=== PATIENT | male | born 1955 | race Caucasian/White ===

== ENCOUNTER 2021-02-18 15:10 | Inpatient (IN) | payer OTHER, SELFPAY ==
[~2021-02-18] VITALS: Ht 180.3 cm; Wt 61.2 kg
[2021-02-18 15:45] VITALS: BP_SYST 150
--- NOTE | 2021-02-18 15:45 | NUR ---
triage assessment done in ambulance, pt. AAOX4, states was mowing yard today felt light headed went to shower and next thing he remembers was EMS present, granddaughter heard a loud sound found pt. on floor in what appeared to be having seizure like activity X 1 minute, EMS reported pt. was postictal X 5 minutes, pt. has no recollection of passing out
[2021-02-18] MEDS ORDERED: NACL 0.9% 1,000 ML IV ONE (16:00)
--- NOTE | 2021-02-18 16:30 | NUR ---
pt. moved to [facility] in tent area from ambulance
--- NOTE | 2021-02-18 16:55 | NUR ---
pt. brought in bed in main ER
--- NOTE | 2021-02-18 16:58 | NUR ---
phone update to kristina Castillo
[2021-02-18 17:58] LABS: BASOPHILS % (AUTO) 0.2 % (0.0-2.0); HEMOGLOBIN 13.7 g/dL (14.0-18.0); LYMPHOCYTES # (AUTO) 0.7 K/uL (1.0-5.5); LYMPHOCYTES % (AUTO) 7.2 % (20.5-51.5); MEAN CORPUSCULAR HEMOGLOBIN 35 pg (27-31); MEAN CORPUSCULAR HGB CONC 36 % (32-36); MEAN CORPUSCULAR VOLUME 98 fL (79.0-98.0); MONOCYTES # (AUTO) 0.8 K/uL (0.0-1.0); MONOCYTES % (AUTO) 8.5 % (1.7-9.3); NEUTROPHILS # (AUTO) 7.7 K/uL (1.8-7.7); NEUTROPHILS % (AUTO) 84.1 % (40.0-70.0); PLATELET COUNT (AUTO) 231 K/uL (130-430); WHITE BLOOD COUNT (AUTO) 9.1 K/uL (4.8-10.8)
--- NOTE | 2021-02-18 18:00 | NUR ---
phone update to granddaughter, Enedina
[2021-02-18 18:03] LABS: CALCIUM 8.8 mg/dL (8.4-11.0); CREATININE 0.83 mg/dL (0.55-1.30); POTASSIUM 4.9 mmol/L (3.5-5.1)
[2021-02-18 18:09] LABS: ALBUMIN 3.4 g/dL (3.4-4.8); TOTAL BILIRUBIN 0.6 mg/dL (0.0-1.0)
--- NOTE | 2021-02-18 18:11 | NUR ---
assisted pt. OOB ambulated to bathroom, pt. needed assistance d/t feeling unsteady
[2021-02-18 18:22] LABS: BILIRUBIN,URINE NEGATIVE (NEGATIVE); BLOOD, URINE NEGATIVE (NEGATIVE); CLARITY/URINE CLEAR (CLEAR); COLOR,URINE YELLOW (YELLOW); GLUCOSE,URINE NEGATIVE (NEGATIVE); KETONES,URINE 2+ (NEGATIVE); LEUKOCYTE ESTERASE ,URINE NEGATIVE (NEGATIVE); NITRITE, URINE NEGATIVE (NEGATIVE); PROTEIN URINE NEGATIVE (NEGATIVE); UROBILINOGEN,URINE 0.2 (0.2-1.0)
--- NOTE | 2021-02-18 18:26 | NUR ---
Patient to ER 7. Side rails up. [facility].
[2021-02-18 19:04] LABS: BARBITURATE, URINE NEGATIVE (NEG <=200); BENZODIAZEPINE, URINE NEGATIVE (NEG <=150); CANNABINOID, URINE NEGATIVE (NEG <=50); COCAINE, URINE NEGATIVE (NEG <=150); METHAMPHETAMINES SCREEN,URINE NEGATIVE (NEG <=500); OPIATE, URINE NEGATIVE (NEG <=100); PHENCYCLIDINE SCREEN,URINE NEGATIVE (NEG <=25); UR TRICYCLIC ANTIDEPRESSANTS NEGATIVE (NEG <=300); URINE AMPHETAMINE NEGATIVE (NEG <=500); URINE METHADONE NEGATIVE (NEG <=200); URINE OXYCODONE SCREEN NEGATIVE (NEG <=100); URINE PROPOXYPHENE SCREEN NEGATIVE (NEG <=300)
[2021-02-18 19:24] LABS: PROTHROMBIN TIME 9.5 SECS (9.5-12.5)
--- NOTE | 2021-02-18 19:24 | NUR ---
MARTITA Meyers at bedside examining patient.
[2021-02-18 19:25] LABS: INR 0.9 (0.80-1.20)
--- NOTE | 2021-02-18 19:32 | NUR ---
Patient AAO x4, resting comfortably in [facility], breathing even and unlabored on room air, symmetrical chest rise and fall, no signs of acute distress noted. IV site patent, no signs of infiltration. Patient updated on plan of care. Will continue to monitor.
--- NOTE | 2021-02-18 19:34 | NUR ---
Jonathan [facility] son [phone]
--- NOTE | 2021-02-18 19:47 | NUR ---
Received report from BRITTANI Gutiérrez for continuation of care
--- NOTE | 2021-02-18 20:32 | NUR ---
Patient resting quietly. No acute distress noted. Vital signs within normal range. Will continue to monitor.
--- NOTE | 2021-02-18 20:55 | NUR ---
Dr. Richards talking with Dr. Stern for admission. Dr. Stern to input orders
--- NOTE | 2021-02-18 21:10 | NUR ---
Dr. Richards at bedside talking with patient regarding plan of care
[2021-02-18] MEDS ORDERED: ALBUTEROL SULFATE 0.083% 2.5 MG/3 ML VIAL.NEB INH PRN (21:30)
[2021-02-18] MEDS ORDERED: ACETAMINOPHEN 325 MG TABLET PO PRN (21:30)
[2021-02-18] MEDS ORDERED: levETIRAcetam 500 MG IV PREMIX 100 ML IV SCH (21:30)
[2021-02-18] MEDS ORDERED: AZITHROMYCIN 500 MG in NS 250 ML IV SCH (21:30)
[2021-02-18] MEDS ORDERED: LORazepam 2 MG/ML VIAL IVP PRN (21:30)
[2021-02-18] MEDS ORDERED: cefTRIAXone 1 GM IVPB PREMIX 50 ML IV SCH (21:30)
--- NOTE | 2021-02-18 21:30 | NUR ---
Patient will be admitted to care of Dr. Freeman. Admitted to Tele unit. Will go to room pending. Belongings list completed. Complete and up to date summary report printed. SBAR report to be given at bedside with opportunity for questions.
[2021-02-18] MEDS: DEXAMETHASONE SOD PHOSPHATE 4 MG/ML VIAL IVP SCH (22:02)
--- NOTE | 2021-02-18 22:35 | NUR ---
Keppra 500mg IVPB infusion completed. No signs or symptoms of reaction. Will continue to monitor.
--- NOTE | 2021-02-18 22:36 | NUR ---
Patient's code status is Full Code paperwork completed and placed in chart.
--- NOTE | 2021-02-18 23:42 | NUR ---
Transfer to TELE via ACLS protocol. Licensed nurse present. IV present no signs or symptoms of infiltration.
--- NOTE | 2021-02-18 23:55 | NUR ---
PT ARRIVED FROM ED VIA GURNEY. PT AMBULATORY AND A+O*NPTE. PT IMMEDIATELY WENT TO RESTROOM UNDER OWN POWER AND W/O INCIDENT. PT THEN CONNECTED TO [employer] MATE. PT REPORTS HAVING HAD COVID VAX MODERNA #1 on 05-24-20, #2 on 06-21-20 AND BOOSTER on 12-24-20. PT HAS INFORMATION ON CELL PHONE. PT HAS 18G LWRIST SALINE LOCK. ANTIBIOTICS (CEFTRIAXONE AND AZITHROMICIN STARTED). NS AT TKO .
[2021-02-19] VITALS (7 sets, daily range): BP systolic 118–140
--- NOTE | 2021-02-19 00:13 | NUR ---
CONSULTATION PAGED/CALLED Reason for Consultation: COVID Person Who was Notified: AIDAN Consulting Physician: JIMMY Color Checker Roving Or Yarn Specialty: Ordering Physician: NAVI
[2021-02-19] MEDS ORDERED: cefTRIAXone 1 GM IVPB PREMIX 50 ML IV ONE (00:29)
[2021-02-19] MEDS ORDERED: AZITHROMYCIN 500 MG/VIAL (ZITHROMAX) IV ONE (00:30)
[2021-02-19 07:39] LABS: BASOPHILS % (AUTO) 0.2 % (0.0-2.0); HEMATOCRIT 37.2 % (36-54); HEMOGLOBIN 13.2 g/dL (14.0-18.0); LYMPHOCYTES % (AUTO) 19.2 % (20.5-51.5); MEAN CORPUSCULAR HEMOGLOBIN 35 pg (27-31); MEAN CORPUSCULAR HGB CONC 36 % (32-36); MEAN CORPUSCULAR VOLUME 98 fL (79.0-98.0); MONOCYTES # (AUTO) 0.2 K/uL (0.0-1.0); MONOCYTES % (AUTO) 4.3 % (1.7-9.3); NEUTROPHILS # (AUTO) 3.8 K/uL (1.8-7.7); NEUTROPHILS % (AUTO) 76.3 % (40.0-70.0); PLATELET COUNT (AUTO) 233 K/uL (130-430); RED CELL DISTRIBUTION WIDTH 11.8 % (9.0-15.0)
[2021-02-19 07:54] LABS: ALBUMIN 2.9 g/dL (3.4-4.8); CALCIUM 8.1 mg/dL (8.4-11.0); CREATININE 0.72 mg/dL (0.55-1.30); POTASSIUM 3.8 mmol/L (3.5-5.1); TOTAL BILIRUBIN 0.5 mg/dL (0.0-1.0)
--- NOTE | 2021-02-19 08:00 | NUR ---
NOTES PATIENTS AAOX 4. VITALS SIGNS STABLE. AFEBRILE. LUNGS BILATERALLY DIMINISHED AT THE BASES. ABDOMEN SOFT AND NON DISTENDED. HAS IV ACCESS ON THE LEFT WRIST #20 NS AT TKO. CALL LIGHTS WITHIN REACH. BED LOW POSITION, ALARMED AND LOCKED. WILL CONTINUE TO MONITOR
[2021-02-19] MEDS: DEXAMETHASONE SOD PHOSPHATE 4 MG/ML VIAL IVP SCH (08:50)
[2021-02-19] MEDS: levETIRAcetam 500 MG IV PREMIX 100 ML IV SCH ×2 (08:50→21:47)
--- NOTE | 2021-02-19 08:59 | NUR ---
DUE MEDS GIVEN AT THIS TIME. SEIZURE PADS PLACED ON THE PATIENTS BED.
--- NOTE | 2021-02-19 14:09 | NUR ---
FIXTURE DESIGNER BY [facility] FOR MRI OF HEAD WITHOUT CONTRAST. CONSENT SIGNED BY THE PATIENT.
--- NOTE | 2021-02-19 14:10 | NUR ---
CONSULTATION: REASON FOR CONSULT: POSSIBLE SEIZURES CONSULTING PHYSICIAN: Amber DURAN ORDERED BY: LOREN SPOKE WITH DR DURAN HIMSELF AND IS AWARE OF THE CONSULT
--- NOTE | 2021-02-19 17:57 | NUR ---
SPOKE TO PATIENT VERBALIZED WANTS TO GO HOME TODAY. POSSIBLE AMA. DR PIMENTEL CALLED NO CALLED BACK YET. WILL CONTINUE TO MONITOR
[2021-02-19] MEDS ORDERED: THIAMINE HCL 100 MG TABLET PO ONE (18:00)
--- NOTE | 2021-02-19 18:16 | NUR ---
CONSULTATION: REASON FOR CONSULT: SEIZURE CONSULTING PHYSICIAN: CHARISSA ORDERED BY: LOREN SPOKE WITH DR CARRINGTON HIMSELF AND IS AWARE OF THE CONSULT
--- NOTE | 2021-02-19 18:58 | NUR ---
SEEN BY DR CHARISSA LIMA. AND AGREED TO STAY AND BE DISCHARGED TOMMORROW
--- NOTE | 2021-02-19 19:25 | NUR ---
CHANGE OF SHOFT; endorsed by day shift. no distress. on contact isolation for COVID. on seizure precaution. call light within reach.
[2021-02-19] MEDS: ENOXAPARIN SODIUM 40 MG/0.4 ML SYRINGE SUBCUT SCH (21:00)
[2021-02-19] MEDS: ASCORBIC ACID 500 MG TABLET PO SCH (21:45)
--- NOTE | 2021-02-19 21:50 | NUR ---
NOTES: due medications given. no complaints noted. on room air, no sob. occ bouys of non productive cough. another IV site on left forearm. patient monitor shows sinus rhythm. call light within reach.
[2021-02-20 01:00] VITALS: BP_SYST 138
--- NOTE | 2021-02-20 01:00 | NUR ---
NOTES: pt. checked and sleeping. no complaints manifested.
--- NOTE | 2021-02-20 04:55 | NUR ---
NOTES: pt. still asleep. no distress. contact isolation observed.
--- NOTE | 2021-02-20 06:30 | NUR ---
CLOSING NOTES; pt. awakened, refused am med. IV lck. observed contact nisolation. pt. still sleepy. call light within reach.
[2021-02-20] MEDS ORDERED: LEVOTHYROXINE SODIUM 0.075 MG TABLET PO SCH (07:00)
[2021-02-20 07:30] LABS: BASOPHILS # (AUTO) 0.1 K/uL (0.0-0.2); BASOPHILS % (AUTO) 0.8 % (0.0-2.0); EOSINOPHILS % (AUTO) 0.1 % (0.0-4.0); HEMATOCRIT 38.5 % (36-54); HEMOGLOBIN 13.9 g/dL (14.0-18.0); LYMPHOCYTES # (AUTO) 3.5 K/uL (1.0-5.5); LYMPHOCYTES % (AUTO) 42.2 % (20.5-51.5); MEAN CORPUSCULAR HEMOGLOBIN 35 pg (27-31); MEAN CORPUSCULAR HGB CONC 36 % (32-36); MEAN CORPUSCULAR VOLUME 98 fL (79.0-98.0); MONOCYTES # (AUTO) 0.8 K/uL (0.0-1.0); MONOCYTES % (AUTO) 9.7 % (1.7-9.3); NEUTROPHILS # (AUTO) 3.9 K/uL (1.8-7.7); NEUTROPHILS % (AUTO) 47.2 % (40.0-70.0); PLATELET COUNT (AUTO) 227 K/uL (130-430); RED BLOOD CELL COUNT(AUTO) 3.94 MIL/uL (4.2-6.2); RED CELL DISTRIBUTION WIDTH 12.1 % (9.0-15.0); WHITE BLOOD COUNT (AUTO) 8.2 K/uL (4.8-10.8)
[2021-02-20 07:45] VITALS: BP_SYST 158
--- NOTE | 2021-02-20 08:00 | NUR ---
REFUSED TO HAVE PUBLICITY WRITER ON. VITALS SIGNS STABLE. AFEBRILE. STILL HAS IV ACCESS ON THE LEFT FOREARM #22. SALINE LOCKED. PATIENT EATING BREAKFAST AT THIS TIME. REFUSED TO HAVE MEDICATION ORDERED. WANTS TO GO HOME FOR NOW.
[2021-02-20 08:32] LABS: ALBUMIN 3.2 g/dL (3.4-4.8); CALCIUM 8.7 mg/dL (8.4-11.0); CREATININE 0.82 mg/dL (0.55-1.30); POTASSIUM 3.1 mmol/L (3.5-5.1); THYROID STIMULATING HORMONE 2.48 uIu/mL (0.36-3.74); TOTAL BILIRUBIN 0.6 mg/dL (0.0-1.0)
[2021-02-20] MEDS: ASCORBIC ACID 500 MG TABLET PO SCH (09:00)
[2021-02-20] MEDS: ENOXAPARIN SODIUM 40 MG/0.4 ML SYRINGE SUBCUT SCH (09:00)
[2021-02-20] MEDS: levETIRAcetam 500 MG IV PREMIX 100 ML IV SCH (09:00)
[2021-02-20] MEDS ORDERED: CHOLECALCIFEROL (VITAMIN D3) 5,000 UNIT TABLET PO SCH (09:00)
[2021-02-20] MEDS ORDERED: THIAMINE HCL 100 MG TABLET PO SCH (09:00)
--- NOTE | 2021-02-20 10:24 | NUR ---
informed dr hughes regarding the refusal and wants go home. encouraged patient to take the medication iv medication and others.
[2021-02-20] MEDS ORDERED: POTASSIUM CHLORIDE 20 MEQ TAB.PRT.SR PO ONE (10:30)
--- NOTE | 2021-02-20 11:50 | NUR ---
PATIENT LEFT DISCHARGE AGAINST MEDICAL ADVICE AND SIGNED IV ACCES REMOVED. SDCH I D BAND REMOVED. DR PIMENTEL NOTIFY OF THE AMA. INFORMED NURSING AUDIO VISUAL SECRETARY ALEX OF THE STATUS THAT PATIENT COVID POSITIVE. AND INFORMED PATIENT TO FOLLOW UP WITH PCP, SAID HE HAS SCHEDULE TO SEE PCP FEBRUARY 24, 2021. AND PSYCHIATRY INSTRUCTOR BY FERNANDEZ BETH IN PRIVATE CAR. VITALS SIGNS STABLE. AFEBRILE.
--- NOTE | 2021-02-20 12:20 | NUR ---
DR PIMENTEL CALLED FOR AMA, AWAITING TO CALL BACK.
--- NOTE | 2021-02-20 16:41 | NUR ---
EEG NOT DONE PATIENT LEFT AT 1150AM.
[2021-02-20 16:49] VITALS: BP_SYST 145
== END 2021-02-20 11:50 | disposition left against medical advice (07) | DRG 871 ==
LOC: SED 15:10 → SMU 21:28 → STU 22:22
PROVIDERS: ADMIT Internal Medicine Hospice and Palliative Medicine; ATTEND Internal Medicine Hospice and Palliative Medicine
DX: A41.9 Sepsis, unspecified organism (principal); U07.1 COVID-19; J12.82 Pneumonia due to coronavirus disease 2019; G40.409 Other generalized epilepsy and epileptic syndromes, not intractable, without status epilepticus; I25.10 Atherosclerotic heart disease of native coronary artery without angina pectoris; I10 Essential (primary) hypertension; E03.9 Hypothyroidism, unspecified; F10.20 Alcohol dependence, uncomplicated; Y90.9 Presence of alcohol in blood, level not specified; D72.810 Lymphocytopenia
CPT/HCPCS: 36415; 70450-TC; 70551; 71045; 76376; 80053; 80061; 80307; 81003; 82728; 83690; 83735; 83880; 84443; 84484; 85025; 85379; 85610-TC; 86140; 93005; 93306; 94760; 96361; 96365; 99285; G0378; J0456; J0696; J1100; J1650; J1953; J7050